=== PATIENT | female | born 1980 | race African-American/Black ===

== ENCOUNTER 2024-02-02 17:44 | Emergency (ER) | payer OTHER, SELFPAY ==
[2024-02-02] MEDS ORDERED: Morphine 4 MG/ML VIAL ONE (18:21)
[2024-02-02] MEDS ORDERED: Ketorolac Tromethamine 30 MG (1 mL) VIAL ONE (18:21)
[2024-02-02 18:45] LABS: ALT (SGPT) 19 U/L (8-55); AST (SGOT) 33 U/L (5-34); Albumin 3.2 g/dL (3.5-5.0); Alkaline Phosphatase 82 U/L (40-110); Anion Gap 12 mmol/L (10-20); BUN (Urea Nitrogen) 11 mg/dL (7.0-18.7); Bilirubin, Total 0.8 mg/dL (0.2-1.2); CK (CPK) 61 U/L (29-168); Calc. Creatinine Clearance 0 mL/min (70-130); Carbon Dioxide 24 mmol/L (22-29); Chloride 106 mmol/L (98-107); Estimated GFR 100; Globulin 5.4 g/dL (2.4-3.5); Glucose 90 mg/dL (70-105); Potassium 3.2 mmol/L (3.5-5.1); Protein, Total 8.6 g/dL (6.0-8.3); Sodium 139 mmol/L (136-145)
[2024-02-02 18:49] LABS: Hemoglobin 10.2 g/dL (12.0-15.5); MDiff Complete? YES; Mean Corpuscular Hemoglobin 31.8 pg (27.0-33.0); Mean Corpuscular Volume 93.5 fL (81.6-98.3); Mean Platelet Volume 10.8 fL (7.4-10.4); Platelet Count 163 10x3/uL (150-450); RBC Distribution Width 13.4 % (11.5-14.5); Red Blood Cell (RBC) Count 3.21 10x6/uL (3.90-5.03); White Blood Cell (WBC) Count 2.5 10x3/uL (3.5-10.5)
[2024-02-02 19:13] LABS: Band 4 % (5-11); Eosinophils 4 % (0-10); Lymphocytes 32 % (21-51); Monocytes 14 % (0-10); Neutrophil 42 % (42-75); Reactive Lymphocytes 4 % (0-10)
[2024-02-02 19:15] LABS: Large Platelets SLIGHT (None Seen); Platelet Adequacy Comment Appears Adequate; RBC Morph Comment Within Normal Limits
[2024-02-02] MEDS ORDERED: Potassium Chloride 20 MEQ TAB ONE (19:22)
== END 2024-02-02 19:37 | disposition home or self-care (01) ==
LOC: CSHERS 17:44
DX: M79.605 Pain in left leg (principal); F17.200 Nicotine dependence, unspecified, uncomplicated; Z21 Asymptomatic human immunodeficiency virus [HIV] infection status; Z55.6 Problems related to health literacy
CPT/HCPCS: 36415; 80053; 82550; 85025; 93005; 96374; 96375; J1885; J2270